=== PATIENT | female | born 1930 | race Two or more races ===

== ENCOUNTER → 2018-08-10 | Outpatient (CLI) | payer MEDICARE, OTHER ==
[~2018-08-10] VITALS: Ht 160 cm; Wt 87.0 kg
[~2018-08-10] MED LIST: AMLO-511 PO; AMOXICILLIN PO; CETI-170 PO; KDUR10 PO; METO-558 PO; OMEP20 PO; PRAV40TA4 PO; VALS160T2 PO; [UNRECOGNIZED DRUG - OTHER] PO
[2018-08-10 16:11] VITALS: BP 148/64
== END | disposition home or self-care (01) ==
LOC: SRCNTR 12:23
PROVIDERS: ATTEND Internal Medicine Critical Care Medicine
DX: I10 Essential (primary) hypertension (principal); K21.9 Gastro-esophageal reflux disease without esophagitis; E78.5 Hyperlipidemia, unspecified; R91.8 Other nonspecific abnormal finding of lung field; R05 Cough
CPT/HCPCS: G0463